=== PATIENT | female | born 1945 | race Two or more races ===

== ENCOUNTER 2024-12-05 10:31 | Inpatient (IN) | payer MEDICARE, MEDICAID ==
[~2024-12-05] VITALS: Ht 160 cm; Wt 61.2 kg
[2024-12-05] MEDS: SODIUM CHLORIDE 0.9% 500 ML IVB ONE (10:45)
--- NOTE | 2024-12-05 11:01 | ED.PDOC ---
Altered Mental Status HPI Comments 79y F who presents to the ED via EMS for chief complaint of ALOC. Per EMS, pt last well time was last night PM and states pt became distressed after pt got deported back to [place] last night. EMS arrived on scene this AM and states pt was tracking upon EMS arrival and became alterted upon being placed on EMS gurney. Pt had vitals checked and accu check was 156 but was hypotensive with systolic BP in the 70's and line was established and pt was given fluids with pt being alerted prior to ED arrival. Pt now in the ED, is altered with stable vitals but not answering questions at this time and is ax0x0. 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 Family History Family History: Pt Confused Social History Smoker: Pt Confused Alcohol: Pt Confused Drugs: Pt Confused Lives In: Pt Confused Constitutional: denies: chills, diaphoresis, fatigue, fever, malaise, sweats, weakness, others EENTM: denies: blurred vision, double vision, ear bleeding, ear discharge, ear drainage, ear pain, ear ringing, eye pain, eye redness, hearing loss, mouth pain, mouth swelling, nasal discharge, nose bleeding, nose congestion, nose pain, photophobia, tearing, throat pain, throat swelling, voice changes, others Respiratory: denies: cough, hemoptysis, orthopnea, SOB at rest, shortness of breath, SOB with excertion, stridor, wheezing, others Cardiovascular: denies: chest pain, dizzy spells, diaphoresis, Dyspnea on exertion, edema, irregular heart beat, left arm pain, lightheadedness, palpitations, PND, syncope, others Gastrointestinal: denies: abdomen distended, abdominal pain, blood streaked bowels, constipated, diarrhea, dysphagia, difficulty swallowing, hematemesis, melena, nausea, poor appetite, poor fluid intake, rectal bleeding, rectal pain, vomiting, others Genitourinary: denies: abnormal vagina bleeding, burning, dyspareunia, dysuria, flank pain, frequency, hematuria, incontinence, pain, , vagina discharge, urgency, others Neurological: denies: dizziness, fainting, headache, left sided numbness, left sided weakness, numbness, paresthesia, pre-existing deficit, right sided numbness, right sided weakness, seizure, speech problems, tingling, tremors, weakness, others Musculoskeletal: denies: back pain, gout, joint pain, joint swelling, muscle pain, muscle stiffness, neck pain, others Integumetry: denies: bruises, change in color, change in hair/nails, dryness, laceration, lesions, lumps, rash, wounds, others Allergic/Immunocompromised: denies: Difficulty Healing, Frequent Infections, Hives, Itching, others Hematologic/Lymphatic: denies: anemia, blood clots, easy bleeding, easy bruising, swollen glands, others Endocrine: denies: excessive hunger, excessive sweating, excessive thirst, excessive urination, flushing, intolerance to cold, intolerance to heat, unexplained weight gain, unexplained weight loss, others Psychiatric: denies: anxiety, bipolar disorder, depression, hopeless, panic disorder, schizophrenia, sleepless, suicidal, others Unable to Obtain due to: Altered Mental Status All Other Systems: Reviewed and Negative Physical Exam General Appearance: Moderate Distress HEENT: Pale Conjuntivae (L), Pale Conjuntivae (R), Pharynx Normal, TMs Normal Neck: Full Range of Motion, Non-Tender, Normal, Normal Inspection Respiratory: Chest Non-Tender, Lungs Clear, No Accessory Muscle Use, No Respiratory Distress, Normal Breath Sounds Cardiovascular: No Edema, No JVD, No Murmur, No Gallop, Normal Peripheral Pulses, Regular Rate/Rhythm Breast Exam: Deferred Gastrointestinal: No Organomegaly, Non Tender, No Pulsatile Mass, Normal Bowel Sounds, Soft Genitalia: Deferred Pelvic: Deferred Rectal: Deferred Extremities: No calf tenderness, Normal capillary refill, Normal inspection, Normal range of motion, Non-tender, No pedal edema Musculoskeletal : Apperance: Normal Neurologic: puncher and fastener II-XII nml as Tested, Motor Weakness, Normal Affect, No Sensory Deficits, Other (Altered level of consciousness) Cerebellar Function: Normal Reflexes: Normal Skin: Dry, Pallor, Warm Lymphatic: No Adenopathy EKG EKG : Pulse Rate (adult): 81 [place]: Normal Cardiac Rhythm: NSR Block: None Hypertrophy: None ST: Normal Was a procedure done? Was a procedure done?: No Differential Diagnosis (ALOC) Differential Diagnosis: Dehydration, Hypoglycemia, Encephalopathy, Sepsis, Closed Head Injury, Drug Overdose X-Ray, Labs, Meds, VS Vital Signs Date Time Temp Pulse Resp B/P (MAP) Pulse Ox O2 Delivery O2 Flow Rate FiO2 12/05/24 11:01 81 12/05/24 10:40 81 12/05/24 10:31 97.5 79 18 94/43 (60) 90 106/41 (62) Lab Test 12/05/24 13:24 12/05/24 12:00 12/05/24 11:20 Range/Units Lactic Acid Level Pending 3.5 *H 0.4-2.0 mmol/L Urine Color Light-yellow Yellow Urine Clarity Clear Clear Urine pH 5.0 5.0-9.0 Urine Specific [place] 1.008 1.001-1.035 Urine Protein Negative Negative Urine Ketones Negative Negative Urine Blood Trace H Negative /uL Urine Nitrite Negative Negative Urine Bilirubin Negative Negative Urine Urobilinogen Normal Negative mg/dL Urine Leukocyte Esterase Negative Negative /uL Urine RBC 1 0 - 4 /hpf Urine Microscopic WBC < 1 0-5 /HPF Urine Squamous Epithelial Cells Few <5 /hpf Urine Bacteria Few H None Seen /hpf Urine Glucose Normal Normal mg/dL White Blood Count 6.7 4.4-10.8 10^3/uL Red Blood Count 4.81 4.0-5.20 10^6/uL Hemoglobin 14.1 12.2-16.2 g/dL Hematocrit 42.9 36.0-46.0 % Mean Corpuscular Volume 89.1 80.0-100.0 fL Mean Corpuscular Hemoglobin 29.3 28.0-32.0 pg Mean Corpuscular Hemoglobin Concent 32.9 32.0-36.0 g/dL Red Cell Distribution Width 14.9 H 11.8-14.3 % Platelet Count 243 140-450 10^3/uL Mean Platelet Volume 7.9 6.9-10.8 fL Neutrophils (%) (Auto) 69.0 37.0-80.0 % Lymphocytes (%) (Auto) 22.5 10.0-50.0 % Monocytes (%) (Auto) 6.8 0.0-12.0 % Eosinophils (%) (Auto) 1.4 0.0-7.0 % Basophils (%) (Auto) 0.3 0.0-2.0 % Neutrophils # (Auto) 4.6 1.6-8.6 10 ^3/uL Lymphocytes # (Auto) 1.5 0.4-5.4 10 ^3/uL Monocytes # (Auto) 0.5 0-1.3 10 ^3/uL Eosinophils # (Auto) 0.1 0-0.8 10 ^3/uL Basophils # (Auto) 0 0-0.2 10 ^3/uL Nucleated Red Blood Cells 0.1 % Sodium Level 139 136-145 mmol/L Potassium Level 3.6 3.5-5.1 mmol/L Chloride Level 105 98-107 mmol/L Carbon Dioxide Level 22 20-31 mmol/L Anion Gap 12 5-15 Blood Urea Nitrogen 10 9-23 mg/dL Creatinine 0.74 0.550-1.02 mg/dL Glomerular Filtration Rate Calc 83 >90 mL/min BUN/Creatinine Ratio 13.5 10.0-20.0 Serum Glucose 126 H 74-106 mg/dL Calcium Level 9.0 8.7-10.4 mg/dL Total Bilirubin 0.7 0.2-1.0 mg/dL Aspartate Amino Transferase (AST) 223 H 13-40 U/L Alanine Aminotransferase (ALT) 72 H 7-40 U/L Alkaline Phosphatase 119 H 46-116 U/L Total Protein 6.7 5.7-8.2 g/dL Albumin 4.6 3.2-4.8 g/dL Current Medications Medications (Trade) Dose Ordered Sig/Joe Route Start Time Stop Time Status Last Admin Sodium Chloride 500 ml @ 500 mls/hr Q1H ONCE IVB 12/05/24 10:45 12/05/24 11:44 DC 12/05/24 10:45 Vancomycin HCl 250 ml @ 250 mls/hr ONCE ONCE IV 12/05/24 12:15 12/05/24 13:14 DC 12/05/24 13:23 Ceftriaxone Sodium 50 ml @ 100 mls/hr ONCE ONCE IV 12/05/24 12:15 12/05/24 12:44 DC 12/05/24 13:23 Sodium Chloride 1,000 ml @ 30 mls/hr Q24H ONCE IV 12/05/24 12:15 12/06/24 12:14 12/05/24 12:15 EXAM: CT HEAD WITHOUT CONTRAST IMPRESSION: 1. No acute intracranial process. CHEST RADIOGRAPH IMPRESSION: No acute cardiopulmonary disease. IV Hep-Lock was established Blood cultures x2 were drawn. After the cultures were drawn, the patient was given vancomycin and Rocephin IV piggyback The CBC is within normal limits The chemistry panel is within normal limits The urine test is negative for infection The 1st lactic acid level is 3.5 At this time, the patient was being admitted to the hospitalist. The patient was admitted Images Reviewed?: Images reviewed and evaluated by me Time of 1ST Reevaluation: 11:30 Reevaluation 1ST: Unchanged Patient Education/Counseling: Other (pt altered) Family Education/Counseling: No Family Present Additional Information - I reviewed the following notes from patient's past medical encounters: - The following tests were ordered, and results were reviewed by me: (Labs, X- Ray, EKG): cbc, cmp, lactic acid, ua, chest x-ray, ct heat w/o contrast, blood culture, ekg x1 - Additional information was gathered from interviewing the following independent Historian: (Family, Other Providers, EMT): ems - I reviewed and agreed with the following test results read by other provider: (X-ray, CT, US): radiologist - I discussed treatments and results with medical personnel and: (consultants, family): none Departure 1 Departure Time of Disposition: 13:40 Impression: Primary Impression: Metabolic encephalopathy Additional Impression: Sepsis Qualified Codes: A41.9 - Sepsis, unspecified organism Disposition: ADMITTED INPATIENT Admit to: Tele Condition: Fair Critical Care Note Critical Care Time?: Yes (45 min-critical care time only) Stability Stability form required: Yes Unstable for transfer: Telemetry monitoring (Telemetry monitoring required), ED Physician Assesment (Clinical assesment) Heart Score Heart Score: Heart Score Response (Comments) Value History N/A 0 EKG N/A 0 Age N/A 0 Risk Factors N/A 0 Troponin N/A 0 Total 0 I personally scribed for BEN IRIZARRY MD ([email or web address]) on 12/05/24 at 11:01. Electronically submitted by Sudarshan Balbuena ([email or web address]). I personally scribed for BEN IRIZARRY MD ([email or web address]) on 12/05/24 at 11:35. Electronically submitted by Sudarshan Balbuena ([email or web address]). BEN IRIZARRY MD Dec 05, 2024 11:01
--- NOTE | 2024-12-05 11:09 | DVH ---
EXAM: CT HEAD WITHOUT CONTRAST HISTORY: aloc COMPARISON: None TECHNIQUE: Axial images of the head were obtained and reformatted in coronal and sagittal planes. All CT scans at this medical facility are performed using dose modulation techniques as appropriate t o a performed exam including the following: Automated exposure control was utilized; adjustment of th e MA and/or KV according to patient size; and use of iterative reconstruction technique. CT Dose: CTDI volume is 50.87 mGy. Dose-length product is 900.9 mGy*cm FINDINGS: There is no evidence of acute intracranial hemorrhage, mass, mass effect midline shift. There is no h ydrocephalus or extra-axial fluid collection. Núñez-white matter differentiation is maintained. The visualized paranasal sinuses and mastoid air cells are clear. The calvarium is intact. IMPRESSION: 1. No acute intracranial process. HS:Y
--- NOTE | 2024-12-05 11:10 | DVH ---
CHEST RADIOGRAPH Indication: aloc Technique: Single frontal view of the chest was obtained Comparison: None FINDINGS: Lines and Tubes: None Lungs: No focal consolidation. Pleura: No effusion. No pneumothorax. Cardiomediastinal contours: Unremarkable Bones: No acute osseous abnormality. IMPRESSION: No acute cardiopulmonary disease.
[2024-12-05 11:34] LABS: Basophils # (auto) 0 10 ^3/uL (0-0.2); Basophils % (auto) 0.3 % (0.0-2.0); Eosinophils # (auto) 0.1 10 ^3/uL (0-0.8); Eosinophils % (auto) 1.4 % (0.0-7.0); Hematocrit 42.9 % (36.0-46.0); Hemoglobin 14.1 g/dL (12.2-16.2); Lymphocytes # (auto) 1.5 10 ^3/uL (0.4-5.4); Lymphocytes % (auto) 22.5 % (10.0-50.0); Mean Corpuscular Hemoglobin 29.3 pg (28.0-32.0); Mean Corpuscular Hgb Conc. 32.9 g/dL (32.0-36.0); Mean Corpuscular Volume 89.1 fL (80.0-100.0); Monocytes # (auto) 0.5 10 ^3/uL (0-1.3); Monocytes % (auto) 6.8 % (0.0-12.0); Neutrophils # (auto) 4.6 10 ^3/uL (1.6-8.6); Nucleated Red Blood Cells % 0.1 %; Platelet Count (auto) 243 10^3/uL (140-450); Red Blood Cells 4.81 10^6/uL (4.0-5.20); Red Cell Distribution Width 14.9 % (11.8-14.3); White Blood Cell 6.7 10^3/uL (4.4-10.8)
[2024-12-05 11:52] LABS: Albumin 4.6 g/dL (3.2-4.8); Anion Gap 12 (5-15); BUN/Creatinine Ratio 13.5 (10.0-20.0); Bilirubin, Total 0.7 mg/dL (0.2-1.0); Blood Urea Nitrogen 10 mg/dL (9-23); Carbon Dioxide 22 mmol/L (20-31); Chloride 105 mmol/L (98-107); Potassium 3.6 mmol/L (3.5-5.1); Sodium 139 mmol/L (136-145); Total Protein 6.7 g/dL (5.7-8.2)
[2024-12-05 11:53] LABS: Alanine Aminotransferase 72 U/L (7-40); Alkaline Phosphatase 119 U/L (46-116); Aspartate Aminotransferase 223 U/L (13-40); Glucose 126 mg/dL (74-106)
[2024-12-05 12:10] LABS: Lactic Acid w/Reflex 3.5 mmol/L (0.4-2.0)
[2024-12-05] MEDS: SODIUM CHLORIDE 0.9% 1,000 ML IV ONE (12:15)
[2024-12-05 12:26] LABS: Urine Bacteria FEW /hpf (None Seen); Urine Blood TRACE /uL (Negative); Urine Clarity Clear (Clear); Urine Color Light-Yellow (Yellow); Urine Protein, UAD Negative (Negative); Urine Specific Gravity 1.008 (1.001-1.035); Urine Squamous Epithelial Cell FEW /hpf (<5); Urine Urobilinogen Normal (Negative); Urine WBC < 1 /HPF (0-5)
[2024-12-05] MEDS: cefTRIAXone 1GM/50ML D5W 50 ML IV ONE (13:23)
[2024-12-05] MEDS: VANCOMYCIN 1GM/250ML KIT 250 ML IV ONE (13:23)
[2024-12-05] MEDS ORDERED: MORPHINE SULFATE INJ 2 MG/ml SYRG IV PRN (17:15)
[2024-12-05] MEDS ORDERED: NITROGLYCERIN 0.4 MG SL TAB SL PRN (17:15)
[2024-12-05] MEDS ORDERED: CLOP75TA70 PO (17:16)
[2024-12-05] MEDS ORDERED: ATOR40TA52 PO (17:16)
--- NOTE | 2024-12-05 17:23 | DVHHP2 ---
History of Present Illness Reason for Visit: Altered mental status History of Present Illness The patient was a 79-year-old female transported to the emergency room by EMS after being found to be nonresponsive at home. Apparently, the patient was last seen yesterday evening watching TV, and when she was checked this morning she was somewhat nonresponsive. At the time of assessment, the patient was alert and oriented, but was reported by the primary nurse in the emergency room that she did have a period of becoming nonresponsive. At this time all vital signs are stable, with home medications reviewed. Significant history of the patient includes hypertension, dyslipidemia, GERD, and neuropathy. Cardiovascular: HTN, hyperipidemia Past Medical History Neuropathy Past Surgical History: None Smoke: No Lives: with Family Review of Systems Constitutional: Yes: Weakness Eyes: No: Pain, Vision change, Conjunctivae inflammation, Eyelid inflammation, Other, Redness ENT: No: Ear pain, Ear discharge, Nose pain, Nose discharge, Nose congestion, Mouth pain, Mouth swelling, Throat pain, Throat swelling, Other Respiratory: No: Cough, Dry, Shortness of breath, SOB with excertion, Wheezing, Hemoptysis, Pleuritic Pain, Sputum, Wheezing, Other Cardiovascular: No: Chest Pain, Palpitations, Orthopnea, Paroxysmal Noc. Dyspnea, Edema, Lt Headedness, Other Gastrointestinal: No: Nausea, Vomiting, Abdominal Pain, Diarrhea, Constipation, Melena, Hematochezia, Other Genitourinary: No Dysuria, No Frequency, No Incontinence, No Hematuria, No Retention, No Other Musculoskeletal: No: other, neck pain, shoulder pain, arm pain, back pain, hand pain, leg pain, foot pain Skin: No: Rash, Lesions, Jaundice, Bruising, Other Neurological: Other (Altered mental status) Allergies: Coded Allergies: UNOBTAINABLE (Unverified , 12/05/24) Medications Current Medications Medications Dose Ordered Sig/Joe Route Start Time Stop Time Status Last Admin Dose Admin Nitroglycerin 0.4 mg Q5MINP PRN SL 12/05/24 17:15 UNV Morphine Sulfate 2 mg Q30M PRN IV 12/05/24 17:15 UNV Sodium Chloride 1,000 ml @ 75 mls/hr [id number] IV 12/05/24 17:15 UNV Exam Vital Signs Vital Signs Date Time Temp Pulse Resp B/P (MAP) Pulse Ox O2 Delivery O2 Flow Rate FiO2 12/05/24 16:00 83 12/05/24 14:40 11 108/73 (85) 99 12/05/24 14:00 98.0 98.0 12/05/24 11:20 Nasal Cannula* 2 28 General Appearance: Alert, Oriented X3, Cooperative, No acute distress HEENT: Atraumatic, PERRLA Respiratory: Clear to auscultation, Normal air movement Cardiovascular: Normal S1, Normal S2 Abdominal: Normal bowel sounds Neuro: Normal gait, Normal speech Psych/Mental Status: Mental status NL, Mood NL Labs/Xrays Labs Test 12/05/24 13:24 12/05/24 12:00 12/05/24 11:20 Range/Units Lactic Acid Level 3.4 *H 0.4-2.0 mmol/L Urine Color Light-yellow Yellow Urine Clarity Clear Clear Urine pH 5.0 5.0-9.0 Urine Specific [place] 1.008 1.001-1.035 Urine Protein Negative Negative Urine Ketones Negative Negative Urine Blood Trace H Negative /uL Urine Nitrite Negative Negative Urine Bilirubin Negative Negative Urine Urobilinogen Normal Negative mg/dL Urine Leukocyte Esterase Negative Negative /uL Urine RBC 1 0 - 4 /hpf Urine Microscopic WBC < 1 0-5 /HPF Urine Squamous Epithelial Cells Few <5 /hpf Urine Bacteria Few H None Seen /hpf Urine Glucose Normal Normal mg/dL White Blood Count 6.7 4.4-10.8 10^3/uL Red Blood Count 4.81 4.0-5.20 10^6/uL Hemoglobin 14.1 12.2-16.2 g/dL Hematocrit 42.9 36.0-46.0 % Mean Corpuscular Volume 89.1 80.0-100.0 fL Mean Corpuscular Hemoglobin 29.3 28.0-32.0 pg Mean Corpuscular Hemoglobin Concent 32.9 32.0-36.0 g/dL Red Cell Distribution Width 14.9 H 11.8-14.3 % Platelet Count 243 140-450 10^3/uL Mean Platelet Volume 7.9 6.9-10.8 fL Neutrophils (%) (Auto) 69.0 37.0-80.0 % Lymphocytes (%) (Auto) 22.5 10.0-50.0 % Monocytes (%) (Auto) 6.8 0.0-12.0 % Eosinophils (%) (Auto) 1.4 0.0-7.0 % Basophils (%) (Auto) 0.3 0.0-2.0 % Neutrophils # (Auto) 4.6 1.6-8.6 10 ^3/uL Lymphocytes # (Auto) 1.5 0.4-5.4 10 ^3/uL Monocytes # (Auto) 0.5 0-1.3 10 ^3/uL Eosinophils # (Auto) 0.1 0-0.8 10 ^3/uL Basophils # (Auto) 0 0-0.2 10 ^3/uL Nucleated Red Blood Cells 0.1 % Sodium Level 139 136-145 mmol/L Potassium Level 3.6 3.5-5.1 mmol/L Chloride Level 105 98-107 mmol/L Carbon Dioxide Level 22 20-31 mmol/L Anion Gap 12 5-15 Blood Urea Nitrogen 10 9-23 mg/dL Creatinine 0.74 0.550-1.02 mg/dL Glomerular Filtration Rate Calc 83 >90 mL/min BUN/Creatinine Ratio 13.5 10.0-20.0 Serum Glucose 126 H 74-106 mg/dL Calcium Level 9.0 8.7-10.4 mg/dL Total Bilirubin 0.7 0.2-1.0 mg/dL Aspartate Amino Transferase (AST) 223 H 13-40 U/L Alanine Aminotransferase (ALT) 72 H 7-40 U/L Alkaline Phosphatase 119 H 46-116 U/L Total Protein 6.7 5.7-8.2 g/dL Albumin 4.6 3.2-4.8 g/dL Assessment/Plan Assessment/Plan Impression: -metabolic encephalopathy -rule out CVA/TIA -rule out seizure disorder -probable syncope -dyslipidemia -primary hypertension Plan: -admit to telemetry unit -carotid Doppler study -echocardiogram -IV hydration -blood and urine culture -hold antihypertensives given marginal blood pressure -repeat labs in a.m. Total time spent with patient discussing and formulating plan of care: 35 minutes. This medical document was created using an electronic medical record system with [employer] system. Although this document has been carefully reviewed, there may still be some phonetic and typographical errors. These areas are purely typographical due to imperfections of the software programs, and do not reflect any compromise in the patient's medical care. Plan discussed with: Patient, Other (RN) My Orders Orders - CARLOS COLON NP Procedure Category Date Status Time Admit ADMIT 12/05/24 Transmitted 17:14 Nitroglycerin PHA 12/05/24 Logged Sublingual (Ntrostat 17:15 Morphine Sulfate PHA 12/05/24 Logged Injection 17:15 Stat Ekg For Chest [facility] 12/05/24 In Process Pain 17:14 Notify Of Changes ALESSANDRA 12/05/24 In Process From Base 17:14 Construction Site Manager For ALESSANDRA 12/05/24 In Process 24 Hours 17:14 Emergency Dysrhythmia [facility] 12/05/24 In Process Protocol 17:14 Rhythm Strips Once ALESSANDRA 12/05/24 In Process Every Shift 17:14 Oxygen By Nasal RT 12/05/24 Transmitted Cannula 17:14 Urine Bacterial JEANETH 12/05/24 Logged Culture 17:14 Erythrocyte LAB 12/05/24 Logged Sedimentation Rate 17:14 C-Reactive Protein LAB 12/05/24 Logged 17:14 Sodium Chloride 0.9% PHA 12/05/24 Logged 17:15 Cardiac DIET 12/05/24 Verified Diet-2gna,Lofat,Lochol Dinner Echo 2d Mode Cardiac US 12/05/24 Verified DOP 17:16 Carotid Duplx W Color US 12/05/24 Verified DOP 17:16 Orthostatic Vital ORDERS 12/05/24 Verified Signs 17:16 Basic Metabolic Panel LAB 12/06/24 Verified 04:00 Complete Blood Count LAB 12/06/24 Verified 04:00 Date of Service: Dec 05, 2024 Billing Provider: CARLOS COLON NP Common Visit Codes: 44201-OJYCAMM INP/OBS CARE (HIGH) CARLOS COLON NP Dec 05, 2024 17:23
--- NOTE | 2024-12-05 19:05 | ECG ---
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
[2024-12-05 20:02] LABS: Erythrocyte Sedimentation Rate 2 mm/hr (0-20)
--- NOTE | 2024-12-05 20:25 | DVH ---
Carotid Duplex Clinical History: syncope Comparison: None Technique: Duplex doppler evaluation of the extracranial carotid and vertebral arteries including color doppler and spectral/pulsed waveform analysis was performed. Findings: RIGHT SIDE: No significant atherosclerotic plaque noted. The peak systolic velocities are 68 cm/s in the CCA, 185 cm/s in the ICA. The ICA/CCA ratio is 2.7. The external carotid artery is patent with peak systolic velocity of 129 cm/s proximally. There is appropriate antegrade flow in the right vertebral artery. LEFT SIDE: No significant atherosclerotic plaque noted. The peak systolic velocities are 89 cm/s in the CCA, 115 cm/s in the ICA. The ICA/CCA ratio is 1.3. The external carotid artery is patent with peak systolic velocity of 105 cm/s proximally. There is appropriate antegrade flow in the left vertebral artery. IMPRESSION: No significant plaque noted in either carotid artery. The velocity in the right ICA is mildly elevate d though this is felt to be artifactual in nature - due to vessel tortuosity. Reference: Radiology 2003; 229:340-346 Normal ICA PSV is <125 cm/sec and no plaque or intimal thickening is visible sonographically Additional criteria include ICA/CCA PSV ratio <2.0 and ICA EDV <40 cm/sec <50% ICA stenosis ICA PSV is <125 cm/sec and plaque or intimal thickening is visible sonographically Additional criteria include ICA/CCA PSV ratio <2.0 and ICA EDV <40 cm/sec 50-69% ICA stenosis ICA PSV is 125-230 cm/sec and plaque is visible sonographically Additional criteria include ICA/CCA PSV ratio of 2.0-4.0 and ICA EDV of 40-100 cm/sec 70% ICA stenosis but less than near occlusion ICA PSV is >230 cm/sec at visible plaque at luminal narrowing are seen at nova-scale at color doppler ultrasound (the higher the doppler parameters lie above the threshold of 230 cm/sec, the greater the likelihood of severe disease) Additional criteria include ICA/CCA PSV ratio >4 and ICA EDV >100 cm/sec
[2024-12-05] MEDS: SODIUM CHLORIDE 0.9% 1,000 ML IV SCH (20:53)
[2024-12-05] MEDS: ACETAMINOPHEN 500 MG TAB or CAP PO PRN (22:35)
[2024-12-06 05:00] VITALS: BP 151/89; PULSE 97; RESP 18; TEMP 98.3; O2SAT 97
[2024-12-06 06:35] LABS: Basophils # (auto) 0 10 ^3/uL (0-0.2); Basophils % (auto) 0.4 % (0.0-2.0); Eosinophils # (auto) 0.1 10 ^3/uL (0-0.8); Eosinophils % (auto) 1.1 % (0.0-7.0); Hematocrit 40.8 % (36.0-46.0); Hemoglobin 13.7 g/dL (12.2-16.2); Lymphocytes # (auto) 1.7 10 ^3/uL (0.4-5.4); Lymphocytes % (auto) 22.9 % (10.0-50.0); Mean Corpuscular Hemoglobin 29.8 pg (28.0-32.0); Mean Corpuscular Hgb Conc. 33.7 g/dL (32.0-36.0); Mean Corpuscular Volume 88.5 fL (80.0-100.0); Monocytes # (auto) 0.4 10 ^3/uL (0-1.3); Monocytes % (auto) 5.4 % (0.0-12.0); Neutrophils # (auto) 5.2 10 ^3/uL (1.6-8.6); Neutrophils % (auto) 70.2 % (37.0-80.0); Nucleated Red Blood Cells % 0.1 %; Platelet Count (auto) 270 10^3/uL (140-450); Red Cell Distribution Width 15.1 % (11.8-14.3); White Blood Cell 7.4 10^3/uL (4.4-10.8)
[2024-12-06 06:36] LABS: Sodium 144 mmol/L (136-145)
[2024-12-06 06:37] LABS: Anion Gap 13 (5-15); Carbon Dioxide 21 mmol/L (20-31)
[2024-12-06 06:38] LABS: Calcium 8.9 mg/dL (8.7-10.4)
[2024-12-06 06:43] LABS: Chloride 110 mmol/L (98-107); Glucose 110 mg/dL (74-106)
[2024-12-06 06:54] LABS: BUN/Creatinine Ratio 10.8 (10.0-20.0); Blood Urea Nitrogen 7 mg/dL (9-23)
[2024-12-06 08:00] VITALS: PULSE 93; RESP 26; O2SAT 95
--- NOTE | 2024-12-06 09:36 | DVHPN2 ---
Progress Note - Dictate Date Seen: Dec 06, 2024 Medical Necessity Reason Pt with a Central, PICC or Fol: No vital signs Vital Sign Date Time Temp Pulse Resp B/P (MAP) Pulse Ox O2 Delivery O2 Flow Rate FiO2 12/06/24 08:00 92 12/06/24 08:00 26 95 Room Air* 0 21 12/06/24 08:00 98.8 163/63 (96) 98.8 Total Intake and Output 12/05/24 12/05/24 12/06/24 15:00 23:00 07:00 Intake Total 1800 ml 150 ml 850 ml Output Total 200 ml 2500 ml Balance 1600 ml -2350 ml 850 ml medications Current Medications Medications Dose Ordered Sig/Joe Route Start Time Stop Time Status Last Admin Dose Admin Nitroglycerin 0.4 mg Q5MINP PRN SL 12/05/24 17:15 Morphine Sulfate 2 mg Q30M PRN IV 12/05/24 17:15 Sodium Chloride 1,000 ml @ 75 mls/hr [id number] IV 12/05/24 17:15 12/06/24 07:00 75 MLS/HR Acetaminophen 500 mg Q6HP PRN PO 12/05/24 22:15 12/06/24 04:04 500 MG laboratory and microbiology Laboratory Tests 12/06/24 05:52 Test 12/06/24 05:52 Range/Units Serum Glucose 110 H 74-106 mg/dL Assessment/Plan Subjective Patient is awake and alert. Objective Patient's mentation has improved. Patient is [place]-speaking. Patient was admitted for syncopal episode. Patient has elevated liver enzymes and lactic acidosis. Plan Obtain CT imaging of abdomen and pelvis. Monitor daily labs. Cardiology consult. DC planning in 1 to 2 days. Plan discussed with: Patient, Other SHAINA COLEMAN NP Dec 06, 2024 09:36
[2024-12-06] MEDS ORDERED: LOSA-534 PO (09:41)
[2024-12-06] MEDS ORDERED: IOHEXOL 300 MG/ML 100ML BOTTLE IJ ONE (10:16)
[2024-12-06 10:39] LABS: LDL Cholesterol 91 mg/dL (< 100); Triglycerides 120 mg/dL (< 150)
[2024-12-06 10:41] LABS: Cholesterol 157 mg/dL (< 200); HDL Cholesterol 54 mg/dL (40-59)
[2024-12-06] MEDS: CLOPIDOGREL BISULFATE 75 MG TAB PO SCH (11:00)
[2024-12-06] MEDS: LOSARTAN POTASSIUM 50 MG TAB PO SCH (11:01)
[2024-12-06] MEDS: PANTOPRAZOLE 40 MG/10 ML VIAL INJ IV SCH (11:02)
[2024-12-06] MEDS: ENOXAPARIN SOD 40 MG/0.4 ML SYRINGE SC SCH (11:02)
[2024-12-06 13:00] VITALS: BP 153/73; PULSE 100; RESP 18; TEMP 97.6; O2SAT 95
[2024-12-06 15:21] VITALS: BP 185/84; PULSE 94; RESP 19; TEMP 98.3; O2SAT 94
[2024-12-06] MEDS: hydrALAZINE HCL 20 MG/ML VL IV PRN (16:29)
--- NOTE | 2024-12-06 17:34 | DVH ---
Exam: CT CT AB PEL WITH IV CON ONLY History: ELEVATED LIVER ENZYMES COMPARISON: None Technique: Multidetector spiral CT of the abdomen and pelvis was performed from lung bases to pubic s ymphysis. Intravenous contrast was administered during this examination. Portal venous imaging was obtained. Axial, coronal and sagittal multiplanar reformats were performed by the technologist on a separate workstation. Radiation Dose : 1. Abdomen/Pelvis: CTDIvol 13 mGy, DLP 563.56 mGy*cm. CONTRAST: Type of contrast: Omnipaque 300 Contrast injected: 100 ml Contrast ingested: 0 ml Findings: Lung Bases: No acute or significant lung base finding. Normal heart size. No pleural or pericardial effusion. Liver: The liver is normal in size. No focal lesions. Normal hepatic vascular enhancement. Gallbladder and biliary Tree: Cholecystectomy. Normal tapering of the common bile duct Spleen: Unremarkable Pancreas: The pancreas is normal in appearance without focal lesions or abnormal enhancement. Adrenal Glands: Unremarkable Kidneys: No hydronephrosis. Bladder: Unremarkable Bowel: The stomach is grossly normal in appearance. Small bowel and colon are normal in caliber and d istribution. The appendix is not visualized; however, no secondary findings of acute appendicitis id entified. Ascites: Absent Lymphadenopathy: No mesenteric, retroperitoneal or periportal lymphadenopathy. Abdominal wall and Mesentery: Unremarkable. Vasculature: The visualized abdominal aorta is normal in size and caliber. Abdominal and pelvic vesse ls demonstrate normal enhancement. Vascular calcification without aneurysm noted Moderate and degree. Pelvic Organs: Severe enlargement of the uterus. Marked inhomogeneity the uterus. Scattered calcifica tion seen throughout the uterus. Pelvic ultrasound recommended to exclude neoplasm. Marked compressio n of the bladder. Multiple small calcifications to the right of the uterus which may be of ovarian et iology. Musculoskeletal: No aggressive focal bony lesions, acute fractures or dislocation. Postoperative navarrete ges seen in the lumbar spine. Grade 2 anterolisthesis of L5 on S1. Laminectomy at the L45 and L5-S1 l evels. IMPRESSION: 1. Severe enlargement of the uterus which is of mixed attenuation. Pelvic ultrasound recommended to e xclude tumor. 2. Appendix not visualized 3. No obstructive uropathy 4. No aortic aneurysm Radiation optimization: All CT scans at this facility use at least one of these dose optimization lalo hniques: Automated exposure control mA and/or kV adjustment per patient size (includes targeted exams where dose is matched to clinical indication) or iterative reconstruction.
--- NOTE | 2024-12-06 18:21 | DVHSR ---
APPROVED REPORT EXAM: Two-dimensional and M-mode echocardiogram with Doppler and color Doppler. Blood Pressure: 164/69 mmHg INDICATION Syncope RISK FACTORS Height: 5'3, Weight: 150 DIMENSIONS LVDd3.7 (3.8-5.7cm)LA (2D) (1.9-4.0cm)Aortic Root3.2 (2.0-3.7cm) LVDs2.6 (2.5-4.0cm)LA (MM) (1.9-4.0cm)Aortic Cusp Exc1.4 (1.5-2.0cm) EF (%) 55.0 (55-70%)Rt. Atrium (1.9-4.0cm)Asc. Aorta3.4 cm IVSd1.1 (0.7-1.1cm)RV (D) (1.8-2.4cm) PWd0.7 (0.7-1.1cm) Mitral Valve MitralMitral Stenosis E wave0.72m/sMV Mean GR.mmHg A wave1.23m/sMV Peak GR.mmHg E/A ratio0.62D MVAcm2 DECEL [id number] 1/2 Tim[place] Aortic Valve Aortic ValveAortic Stenosis V11.48m/John Mean GR.5mmHg V21.47m/John Peak GR.9mmHg LVOT Diameter1.7 (1.8-2.4cm)Doppler AVA2.28cm2 Pulmonic Valve V21.14m/s Other Information Quality : Technically LimitedRhythm : Technically limited study due to patient position.body habitus. Conclusion Left ventricle: Left ventricle was normal size with normal systolic function. LVEF was around 55%. There was no gross wall motion abnormality. Right ventricle: Right ventricle is normal size with normal systolic function. Both atria were yajaira l size. Aortic valve was trileaflet. There was no aortic insufficiency/stenosis. There was no mitral/tricus pid regurgitation. Pulmonary valve was not well visualized. As there was no good tricuspid regurgitation jet, right ventricular systolic pressure could not be es timated. There was no pericardial effusion. IVC was normal size with normal respiratory variation.
--- NOTE | 2024-12-06 19:29 | DVH ---
ABDOMINAL ULTRASOUND CLINICAL HISTORY: elevated liver enzymes TECHNIQUE: Multiple grayscale and color Doppler ultrasound images were obtained of the abdomen. WID: COMPARISON: None FINDINGS: Liver and Biliary System: Homogeneous echotexture, normal size measuring 10.75 cm. No focal hepati c observations. No intrahepatic bile duct dilatation. The common duct measures 0.3 cm at the leobardo hepatis. Prior cholecystectomy. Pancreas: Visualized portions are unremarkable. Kidneys: The right kidney is 8.9 cm . No hydronephrosis, increased echogenicity, shadowing stone, o r focal lesion. IMPRESSION: 1. No acute abnormality 2. Prior cholecystectomy.
--- NOTE | 2024-12-06 19:38 | DVHINCON2 ---
Date of service: Dec 06, 2024 History of Present Illness HPI Patient is a 79-year-old female who presented to the hospital secondary to altered mental status. As per EMS, the patient's blood pressure was 70s at home. She did get some fluids and felt better later on. Patient denies any chest pains. Patient denies palpitation. Cardiology is involved for cardiac aspects of care. Patient denies previous cardiac evaluation and management. Patient denies history of drug abuse/alcohol abuse. It seems that the patient did receive some stressful news prior to the problem. She is [place] speaking and information was obtained by using an professor of sociology and talking to the patient's son at the bedside. Home Meds Reported Medications Losartan Potassium (Losartan Potassium) 50 Mg Tab, 1 TAB PO DAILY 12/06/24 Atorvastatin Calcium (ATORVASTATIN CALCIUM) 40 Mg Tab, 1 TAB PO DAILY 12/05/24 Clopidogrel Bisulfate (CLOPIDOGREL) 75 Mg Tab, 1 TAB PO DAILY 12/05/24 Past Medical History Others Past medical history includes hypertension, hyperlipidemia, neuropathy and old history of GERD. She has had back surgery few years back. He has no report of drug abuse/smoking/alcohol abuse. There is no relevant family history. Patient Family History: Patient reports no known family medical history. Smoker: No Hx (Negative) Alocohol: Rare Drugs: None Review of Systems Constitutional: Weakness Ears, Nose, & Throat: No symptom reported Eyes: Vision change Pulmonary/Respiratory: No symptom reported Cardiovascular: No symptom reported All Other Systems Fourteen point review of system was performed. Relevant findings as per above and as per HPI. Otherwise negative H&P Exam Vital Signs Vital Signs Date Time Temp Pulse Resp B/P (MAP) Pulse Ox O2 Delivery O2 Flow Rate FiO2 12/06/24 16:29 162/84 12/06/24 15:21 98.3 94 19 94 98.3 12/06/24 08:00 Room Air* 0 21 General Appeara: Well developed Head Exam: Normal inspection Eye Exam: bilateral eye PERRL Nasal Exam: Normal inspection Mouth: Normal Inspection Pulmonary/Respiratory: Lungs clear Cardiovascular/Chest: Normal inspection, Normal Rhythm, Systolic murmur Peripheral Pulses: 2+ carotid (R), 2+ carotid (L), 2+ femoral (R), 2+ femoral (L), 2+ dorsalis pedis (R), 2+ dorsalis pedis (L), 2+ Radial (R), 2+ Radial (L) Abdominal Exam: Normal bowel sounds, Soft, No hepatospenomegaly Neuro/Mental St: Alert, Oriented Eye contact/ Speech: Cooperative Labs/Xrays Labs Test 12/06/24 05:52 12/05/24 18:25 12/05/24 13:24 12/05/24 12:00 Range/Units White Blood Count 7.4 4.4-10.8 10^3/uL Red Blood Count 4.60 4.0-5.20 10^6/uL Hemoglobin 13.7 12.2-16.2 g/dL Hematocrit 40.8 36.0-46.0 % Mean Corpuscular Volume 88.5 80.0-100.0 fL Mean Corpuscular Hemoglobin 29.8 28.0-32.0 pg Mean Corpuscular Hemoglobin Concent 33.7 32.0-36.0 g/dL Red Cell Distribution Width 15.1 H 11.8-14.3 % Platelet Count 270 140-450 10^3/uL Mean Platelet Volume 8.1 6.9-10.8 fL Neutrophils (%) (Auto) 70.2 37.0-80.0 % Lymphocytes (%) (Auto) 22.9 10.0-50.0 % Monocytes (%) (Auto) 5.4 0.0-12.0 % Eosinophils (%) (Auto) 1.1 0.0-7.0 % Basophils (%) (Auto) 0.4 0.0-2.0 % Neutrophils # (Auto) 5.2 1.6-8.6 10 ^3/uL Lymphocytes # (Auto) 1.7 0.4-5.4 10 ^3/uL Monocytes # (Auto) 0.4 0-1.3 10 ^3/uL Eosinophils # (Auto) 0.1 0-0.8 10 ^3/uL Basophils # (Auto) 0 0-0.2 10 ^3/uL Nucleated Red Blood Cells 0.1 % Sodium Level 144 # 136-145 mmol/L Potassium Level 4.0 3.5-5.1 mmol/L Chloride Level 110 H 98-107 mmol/L Carbon Dioxide Level 21 20-31 mmol/L Anion Gap 13 5-15 Blood Urea Nitrogen 7 L 9-23 mg/dL Creatinine 0.65 0.550-1.02 mg/dL Glomerular Filtration Rate Calc 90 >90 mL/min BUN/Creatinine Ratio 10.8 10.0-20.0 Serum Glucose 110 H 74-106 mg/dL Calcium Level 8.9 8.7-10.4 mg/dL B-Type Natriuretic Peptide 105.93 0-100 pg/mL Triglycerides Level 120 < 150 mg/dL Cholesterol Level 157 < 200 mg/dL LDL Cholesterol 91 < 100 mg/dL HDL Cholesterol 54 40-59 mg/dL Vitamin D 25-Hydroxy 86.9 30.0-100 ng/mL Erythrocyte Sedimentation Rate 2 0-20 mm/hr C-Reactive Protein High Sensitivity 0.07 <1.0 mg/dL Lactic Acid Level 3.4 *H 0.4-2.0 mmol/L Urine Color Light-yellow Yellow Urine Clarity Clear Clear Urine pH 5.0 5.0-9.0 Urine Specific [place] 1.008 1.001-1.035 Urine Protein Negative Negative Urine Ketones Negative Negative Urine Blood Trace H Negative /uL Urine Nitrite Negative Negative Urine Bilirubin Negative Negative Urine Urobilinogen Normal Negative mg/dL Urine Leukocyte Esterase Negative Negative /uL Urine RBC 1 0 - 4 /hpf Urine Microscopic WBC < 1 0-5 /HPF Urine Squamous Epithelial Cells Few <5 /hpf Urine Bacteria Few H None Seen /hpf Urine Glucose Normal Normal mg/dL Test 12/05/24 11:20 Range/Units Total Bilirubin 0.7 0.2-1.0 mg/dL Aspartate Amino Transferase (AST) 223 H 13-40 U/L Alanine Aminotransferase (ALT) 72 H 7-40 U/L Alkaline Phosphatase 119 H 46-116 U/L Total Protein 6.7 5.7-8.2 g/dL Albumin 4.6 3.2-4.8 g/dL Microbiology Date/Time Source Procedure Growth Status 12/05/24 12:00 Urine - [place] Urine Culture - Preliminary Resulted 12/05/24 11:20 Blood Blood Culture - Preliminary NO GROWTH AFTER 24 HOURS OF INCUBATION. Resulted Assessment/Plan Plan Patient is a 79-year-old female who presented to the hospital secondary to altered mental status. As per EMS, the patient's blood pressure was 70s at home. She did get some fluids and felt better later on. Patient denies any chest pains. Patient denies palpitation. Cardiology is involved for cardiac aspects of care. Patient denies previous cardiac evaluation and management. Patient denies history of drug abuse/alcohol abuse. It seems that the patient did receive some stressful news prior to the problem. She is [place] speaking and information was obtained by using an professor of sociology and talking to the patient's son at the bedside. Not in acute distress. Sitting in bed and eating dinner at the time of evaluation. Not using accessory muscles of breathing. Mucosa is pink and wet. No carotid bruit. No goiter. Lungs are clear to auscultation. Cardiac: Regular, no thrill/gallop. Abdomen is soft. Bowel sounds is positive. There is no gross mass/hepatomegaly. There is no peripheral edema. Past medical history includes hypertension, hyperlipidemia, neuropathy and old history of GERD. She has had back surgery few years back. He has no report of drug abuse/smoking/alcohol abuse. There is no relevant family history. Creatinine: 0.74 - 0.65 Potassium: 3.6 - 4.0 AST/ALT: 223/72 Lactic acid: 3.5 - 3.4 BNP: 105.93 Chest x-ray revealed: No acute cardiopulmonary disease. CT of the head revealed: IMPRESSION: 1. No acute intracranial process. Carotid Doppler reported: IMPRESSION: No significant plaque noted in either carotid artery. The velocity in the right ICA is mildly elevated though this is felt to be artifactual in nature - due to vessel tortuosity. Abdomen/pelvis CT scan reported: IMPRESSION: 1. Severe enlargement of the uterus which is of mixed attenuation. Pelvic ultrasound recommended to exclude tumor. 2. Appendix not visualized 3. No obstructive uropathy 4. No aortic aneurysm EKG revealed sinus rhythm with no specific ST-T changes Telemetry reveals sinus rhythm and occasions of sinus tachycardia Echocardiogram revealed: Left ventricle: Left ventricle was normal size with normal systolic function. LVEF was around 55%. There was no gross wall motion abnormality. Right ventricle: Right ventricle is normal size with normal systolic function. Both atria were normal size. Aortic valve was trileaflet. There was no aortic insufficiency/stenosis. There was no mitral/tricuspid regurgitation. Pulmonary valve was not well visualized. As there was no good tricuspid regurgitation jet, right ventricular systolic pressure could not be estimated. There was no pericardial effusion. IVC was normal size with normal respiratory variation. Patient is a 79-year-old female who presented to the hospital with altered mental status which slowly improved. Presentation is in favor of some type of encephalopathy (most likely metabolic). Cardiogenic syncope and presentation is less likely. Altered mental status Encephalopathy, metabolic/toxic/septic? Hypotension UTI? Hyperlipidemia Neuropathy GERD Hypertension Uterus enlargement Cardiac suggestion for management: Manage on telemetry Follow-up electrolytes and kidney function tests and correct abnormalities Consider GI evaluation for abnormal LFT Consider physician's assistant evaluation/abdominal sono for uterus enlargement Further evaluation and management depends on the above and clinical course Thank you for consultation A total of 75 minutes was spent reviewing the patient record, examining the patient, making a diagnostic and therapeutic plan, discussing this plan with medical personnel, following up on diagnostic studies and following the patient for clinical stability excluding any and all procedures. At least 50% of this time was spent in direct, [id number] contact. Thank you for allowing me to participate in this patient's care. Further recommendations will depend on patient's clinical course. Please do not hesitate to contact me if you have any questions or concerns. This medical document was created using electronic medical record system with [employer] computerized dictation system. Although this document has been carefully reviewed, there may still be some phonetic and typographical errors. These areas are purely typographical due to the imperfection of the software programs, and do not reflect any compromise in the patient's medical care. Plan discussed with: Patient, Son (at bedside), Other (nurse) MARTITA SYKES MD Dec 06, 2024 19:38
[2024-12-06 20:00] VITALS: PULSE 103
[2024-12-06 21:00] VITALS: BP 155/72; PULSE 102; RESP 18; TEMP 98.4; O2SAT 94
--- NOTE | 2024-12-06 21:36 | DVHINCON2 ---
Date of service: Dec 06, 2024 Referring Physician Nanci Reason for Consultation Syncope, ALOC History of Present Illness Ms. Connelly was right-handed female with a history of hypertension, GERD, left foot paresthesia, she was brought to the [facility] on 12/05[facility]2024 with a chief company of altered mental status, at this time, she was alert and fully oriented, with good social skills, but is a poor historian, the history is obtained from her son, chart review after I have intubated her. Our bilingual staff helped me In the morning on 12/05/2024, when her son came to her room checking her out, the patient was found to be nonresponsive to verbal stimuli, eyes were retirement open, mouth tightly closed, tensing whole-body. Her son called 911 and EMS came over in about 10 minutes, and found she was respiration, hypotension (SBP: 70) on her. According to ER documentation, she was still mentally altered in the ER. She was never had similar problem before, no history of seizure She reports having stroke in 2010, in that she had weakness all over body, and she was treated in a [facility]. But her son relates the patient was had left-sided weakness, she requested and her neighbor sent to her to a local hospital. The patient was said to have stroke. She denies taking aspirin or any blood thinner at home, but her ambulatory medication list includes clopidogrel. Her son relates the patient did not take blood thinner because of easy bruising Coincidentally after lumbar spine surgery in 2010, the patient was has constant numbness/and crawling feeling in the top and bottom of the right foot Urinalysis, 12/05/2024: WBC: One, urine leukocyte esterase: Negative CBC, 12/06/2024: Unremarkable BMP, 12/05/2024: Unremarkable Lactic acid, 12/05/2024: 3.5, 3.4 TBI/AST/ALT/AP, 12/05/2024: 0.7/223/72/119 TG/HDL/LDL/HDL, 12/06/2024: 120/157/91/54 Carotid Doppler, 12/05/2024: No significant plaque noted in either carotid artery. The velocity in the right ICA is mildly elevated though this is felt to be artifactual in nature - due to vessel tortuosity CT head, 12/05/2024: No acute intracranial process. Past Medical History Hypertension, GERD, neuropathy Past Surgical History Lumbar spine surgery Family History: Patient reports no known family medical history. Family History She is not aware of her family history Social History She was tobacco smoker, but no history of alcohol or recreational substance abuse Allergies: Coded Allergies: NO KNOWN ALLERGIES (Unverified , 12/05/24) Home Meds Reported Medications Losartan Potassium (Losartan Potassium) 50 Mg Tab, 1 TAB PO DAILY 12/06/24 Atorvastatin Calcium (ATORVASTATIN CALCIUM) 40 Mg Tab, 1 TAB PO DAILY 12/05/24 Clopidogrel Bisulfate (CLOPIDOGREL) 75 Mg Tab, 1 TAB PO DAILY 12/05/24 Current Medications Current Medications Medications (Trade) Dose Ordered Sig/Joe Route PRN Reason Start Time Stop Time Status Last Admin Acetaminophen (Tylenol Tablet Or Capsule) 500 mg Q6HP PRN PO MILD PAIN (1-3 PAIN SCALE) 12/05/24 22:15 12/06/24 04:04 Clopidogrel Bisulfate (Plavix) 75 mg DAILY PO 12/06/24 10:00 12/06/24 11:00 Losartan Potassium (Cozaar Tablet) 50 mg DAILY PO 12/06/24 10:00 12/06/24 11:01 Pantoprazole Sodium (Protonix) 40 mg DAILY IV 12/06/24 09:45 12/06/24 11:03 Enoxaparin Sodium (Lovenox) 40 mg DAILY SC 12/06/24 10:00 12/06/24 11:02 Hydralazine HCl (Apresoline Injection) 10 mg Q6HP PRN IV SBP>160 12/06/24 16:15 12/06/24 16:29 Review of Systems As above, the other systems are negative Vital Signs Vital Signs Date Time Temp Pulse Resp B/P (MAP) Pulse Ox O2 Delivery O2 Flow Rate FiO2 12/06/24 16:29 162/84 12/06/24 15:21 Room Air* 0 21 12/06/24 15:21 98.3 94 19 94 98.3 Physical Exam GENERAL EXAM: General: the patient is well developed and nourished. No acute distress. RESPIRATORY: Normal respiratory effort with symmetrical lung expansion. Lungs clear to auscultation. CARDIOVASCULAR: Regular rate and rhythm with no murmurs. S1, S2. ABDOMEN: Soft, nontender, normal bowel sound NEUROLOGICAL: MENTAL STATUS: Awake and alert. Oriented to person, place, time and general circumstances. Poor historian SPEECH, LANGUAGE, HIGHER CORTICAL FUNCTION: no aphasia or dysathria. CRANIAL NERVES: #2: Intact visual morin to confrontation. The optic discs were sharp. #3,4,6: Pupils are equal, round and reactive. EOMs full and conjugate. No nystagmus. #5: Facial sensation intact in all three divisions bilaterally. Mandibular strength intact. #7: Facial muscles symmetrical and strength intact. #8: Hearing grossly normal to voice. #9,10: Uvula and soft palate rise in the midline. Swallow and voice are normal. #11: Trapezius and sternomastoid strength intact bilaterally. #12: Tongue midline. No fasciculations or atrophy. SENSATION: Sensation to touch and pinprick is significant diminished in the left foot below the ankle MOTOR: Normal tone in the upper and lower extremity. Normal muscle bulk. No fasciculations. No abnormal movements or posturing. Muscle strength of the major groups in the upper extremities is 5/5. Muscle strength of the major groups in the lower extremities is 5/5. REFLEXES: Deep tendon reflexes normal and symmetrical. No pathological reflexes. CEREBELLAR/COORDINATION: Finger to nose is normal bilaterally. GAIT/STATION: deferred Labs/Diagnostic Data Labs Test 12/06/24 05:52 12/05/24 18:25 12/05/24 13:24 12/05/24 12:00 Range/Units White Blood Count 7.4 4.4-10.8 10^3/uL Red Blood Count 4.60 4.0-5.20 10^6/uL Hemoglobin 13.7 12.2-16.2 g/dL Hematocrit 40.8 36.0-46.0 % Mean Corpuscular Volume 88.5 80.0-100.0 fL Mean Corpuscular Hemoglobin 29.8 28.0-32.0 pg Mean Corpuscular Hemoglobin Concent 33.7 32.0-36.0 g/dL Red Cell Distribution Width 15.1 H 11.8-14.3 % Platelet Count 270 140-450 10^3/uL Mean Platelet Volume 8.1 6.9-10.8 fL Neutrophils (%) (Auto) 70.2 37.0-80.0 % Lymphocytes (%) (Auto) 22.9 10.0-50.0 % Monocytes (%) (Auto) 5.4 0.0-12.0 % Eosinophils (%) (Auto) 1.1 0.0-7.0 % Basophils (%) (Auto) 0.4 0.0-2.0 % Neutrophils # (Auto) 5.2 1.6-8.6 10 ^3/uL Lymphocytes # (Auto) 1.7 0.4-5.4 10 ^3/uL Monocytes # (Auto) 0.4 0-1.3 10 ^3/uL Eosinophils # (Auto) 0.1 0-0.8 10 ^3/uL Basophils # (Auto) 0 0-0.2 10 ^3/uL Nucleated Red Blood Cells 0.1 % Sodium Level 144 # 136-145 mmol/L Potassium Level 4.0 3.5-5.1 mmol/L Chloride Level 110 H 98-107 mmol/L Carbon Dioxide Level 21 20-31 mmol/L Anion Gap 13 5-15 Blood Urea Nitrogen 7 L 9-23 mg/dL Creatinine 0.65 0.550-1.02 mg/dL Glomerular Filtration Rate Calc 90 >90 mL/min BUN/Creatinine Ratio 10.8 10.0-20.0 Serum Glucose 110 H 74-106 mg/dL Calcium Level 8.9 8.7-10.4 mg/dL B-Type Natriuretic Peptide 105.93 0-100 pg/mL Triglycerides Level 120 < 150 mg/dL Cholesterol Level 157 < 200 mg/dL LDL Cholesterol 91 < 100 mg/dL HDL Cholesterol 54 40-59 mg/dL Vitamin D 25-Hydroxy 86.9 30.0-100 ng/mL Erythrocyte Sedimentation Rate 2 0-20 mm/hr C-Reactive Protein High Sensitivity 0.07 <1.0 mg/dL Lactic Acid Level 3.4 *H 0.4-2.0 mmol/L Urine Color Light-yellow Yellow Urine Clarity Clear Clear Urine pH 5.0 5.0-9.0 Urine Specific [place] 1.008 1.001-1.035 Urine Protein Negative Negative Urine Ketones Negative Negative Urine Blood Trace H Negative /uL Urine Nitrite Negative Negative Urine Bilirubin Negative Negative Urine Urobilinogen Normal Negative mg/dL Urine Leukocyte Esterase Negative Negative /uL Urine RBC 1 0 - 4 /hpf Urine Microscopic WBC < 1 0-5 /HPF Urine Squamous Epithelial Cells Few <5 /hpf Urine Bacteria Few H None Seen /hpf Urine Glucose Normal Normal mg/dL Test 12/05/24 11:20 Range/Units Total Bilirubin 0.7 0.2-1.0 mg/dL Aspartate Amino Transferase (AST) 223 H 13-40 U/L Alanine Aminotransferase (ALT) 72 H 7-40 U/L Alkaline Phosphatase 119 H 46-116 U/L Total Protein 6.7 5.7-8.2 g/dL Albumin 4.6 3.2-4.8 g/dL Microbiology Date/Time Source Procedure Growth Status 12/05/24 12:00 Urine - [place] Urine Culture - Preliminary Resulted 12/05/24 11:20 Blood Blood Culture - Preliminary NO GROWTH AFTER 24 HOURS OF INCUBATION. Resulted Assessment Altered mental status, etiology unclear ? Metabolic/toxic Encephalopathy ? Stroke ? Seizure Lactic acidosis Reports stroke, may not on secondary prevention secondary to easy bruising Left food sensory loss without weakness ? Radiculopathy Plan/Recommendation Monitoring Supportive treatment Telemetry UDS CK Lipitor profile EEG MR brain scan Echocardiogram Clopidogrel 75 mg daily for now DVT prophylaxis/Lovenox GI prophylax/Protonix Her son to bring medication bottles from home Cardiology evaluation Plan discussed with: Patient, Son, Other GUSTAVO ANDERSON MD Dec 06, 2024 21:36
[2024-12-06] MEDS ORDERED: LORazepam 2MG/ML-1ML VIAL IV PRN (22:30)
--- NOTE | 2024-12-06 22:47 | DVHEEG2 ---
Neurology EEG Procedural Note Procedural Note EXAM DATE: 12/06/2024 REFERRING DOCTOR: Nanci TECHNIQUE: Eighteen channels of EEG, 2 channels of EOG, and 1 channel of EKG were recorded using the International 10/20 system. CLINICAL DATA: The patient was referred for an EEG evaluation for the evidence of seizure disorder. MEDICATIONS: See the chart BACKGROUND ACTIVITY: While the patient was awake, the background activity consisted of well regulated 10 Hz rhythmic waveforms, symmetrically distributed over both posterior quadrants and was reactive to eye opening. ACTIVATION: Hyperventilation: Not done Photic Stimulation: Not done Sleep: Noticed IMPRESSION: This is a normal EEG. No focal, lateralized, or epileptiform features are noted. If clinically indicated to rule out a seizure disorder, recommend repeat EEG with sleep deprivation. The EKG channel showed a regular heart rate of 90/min[place] [address] GUSTAVO ANDERSON MD Dec 06, 2024 22:47
[2024-12-06 22:57] LABS: Triglycerides 86 mg/dL (< 150)
[2024-12-06 22:58] LABS: LDL Cholesterol 85 mg/dL (< 100)
[2024-12-06 22:59] LABS: Cholesterol 149 mg/dL (< 200); HDL Cholesterol 55 mg/dL (40-59)
[2024-12-07 08:00] VITALS: PULSE 74; PULSE 77; RESP 16; O2SAT 98
[2024-12-07 09:00] VITALS: BP 147/90; PULSE 86; RESP 16; TEMP 98.2; O2SAT 94
--- NOTE | 2024-12-07 12:14 | DVHPN2 ---
Progress Note - Dictate Date Seen: Dec 07, 2024 Medical Necessity Reason Pt with a Central, PICC or Fol: No vital signs Vital Sign Date Time Temp Pulse Resp B/P (MAP) Pulse Ox O2 Delivery O2 Flow Rate FiO2 12/07/24 09:50 142/76 12/07/24 09:00 98.2 86 16 94 98.2 12/07/24 08:00 Room Air* 0 21 Total Intake and Output 12/06/24 12/06/24 12/07/24 15:00 23:00 07:00 Intake Total 525 ml 240 ml 640 ml Balance 525 ml 240 ml 640 ml medications Current Medications Medications Dose Ordered Sig/Joe Route Start Time Stop Time Status Last Admin Dose Admin Nitroglycerin 0.4 mg Q5MINP PRN SL 12/05/24 17:15 Morphine Sulfate 2 mg Q30M PRN IV 12/05/24 17:15 Sodium Chloride 1,000 ml @ 75 mls/hr [id number] IV 12/05/24 17:15 12/07/24 09:23 75 MLS/HR Acetaminophen 500 mg Q6HP PRN PO 12/05/24 22:15 12/06/24 22:02 500 MG Clopidogrel Bisulfate 75 mg DAILY PO 12/06/24 10:00 12/07/24 09:50 75 MG Losartan Potassium 50 mg DAILY PO 12/06/24 10:00 12/07/24 09:50 50 MG Pantoprazole Sodium 40 mg DAILY IV 12/06/24 09:45 12/07/24 09:49 40 MG Enoxaparin Sodium 40 mg DAILY SC 12/06/24 10:00 12/07/24 09:49 40 MG Hydralazine HCl 10 mg Q6HP PRN IV 12/06/24 16:15 12/06/24 16:29 10 MG Lorazepam 1 mg ONCE PRN IV 12/06/24 22:30 laboratory and microbiology Laboratory Tests 12/06/24 05:52 Test 12/06/24 05:52 Range/Units Serum Glucose 110 H 74-106 mg/dL Assessment/Plan Patient is a 79-year-old female who presented to the hospital secondary to altered mental status. As per EMS, the patient's blood pressure was 70s at home. She did get some fluids and felt better later on. Patient denies any chest pains. Patient denies palpitation. Cardiology is involved for cardiac aspects of care. Patient denies previous cardiac evaluation and management. Patient denies history of drug abuse/alcohol abuse. It seems that the patient did receive some stressful news prior to the problem. She is Yi speaking and information was obtained by using an supervisor nutritional yeast and talking to the patient's son at the bedside. Not in acute distress. Sitting in bed and eating dinner at the time of evaluation. Not using accessory muscles of breathing. Mucosa is pink and wet. No carotid bruit. No goiter. Lungs are clear to auscultation. Cardiac: Regular, no thrill/gallop. Abdomen is soft. Bowel sounds is positive. There is no gross mass/hepatomegaly. There is no peripheral edema. Past medical history includes hypertension, hyperlipidemia, neuropathy, left foot paresthesia, old CVA, GERD and previous history of cholecystectomy. She has had back surgery few years back. He has no report of drug abuse/smoking/alcohol abuse. There is no relevant family history. (Not on antiplatelets secondary to easy bruising) Creatinine: 0.74 - 0.65 Potassium: 3.6 - 4.0 AST/ALT: 223/72 Lactic acid: 3.5 - 3.4 BNP: 105.93 CK: 51 Chest x-ray revealed: No acute cardiopulmonary disease. CT of the head revealed: IMPRESSION: 1. No acute intracranial process. Carotid Doppler reported: IMPRESSION: No significant plaque noted in either carotid artery. The velocity in the right ICA is mildly elevated though this is felt to be artifactual in nature - due to vessel tortuosity. Abdomen/pelvis CT scan reported: IMPRESSION: 1. Severe enlargement of the uterus which is of mixed attenuation. Pelvic ultrasound recommended to exclude tumor. 2. Appendix not visualized 3. No obstructive uropathy 4. No aortic aneurysm Abdominal ultrasound revealed: Liver and Biliary System: Homogeneous echotexture, normal size measuring 10.75 cm. No focal hepatic observations. No intrahepatic bile duct dilatation. The common duct measures 0.3 cm at the leobardo hepatis. Prior cholecystectomy. Pancreas: Visualized portions are unremarkable. Kidneys: The right kidney is 8.9 cm . No hydronephrosis, increased echogenicity, shadowing stone, or focal lesion. IMPRESSION: 1. No acute abnormality 2. Prior cholecystectomy. EKG revealed sinus rhythm with no specific ST-T changes Telemetry reveals sinus rhythm and occasions of sinus tachycardia Echocardiogram revealed: Left ventricle: Left ventricle was normal size with normal systolic function. LVEF was around 55%. There was no gross wall motion abnormality. Right ventricle: Right ventricle is normal size with normal systolic function. Both atria were normal size. Aortic valve was trileaflet. There was no aortic insufficiency/stenosis. There was no mitral/tricuspid regurgitation. Pulmonary valve was not well visualized. As there was no good tricuspid regurgitation jet, right ventricular systolic pressure could not be estimated. There was no pericardial effusion. IVC was normal size with normal respiratory variation. Patient is a 79-year-old female who presented to the hospital with altered mental status which slowly improved. Presentation is in favor of some type of encephalopathy (most likely metabolic). Cardiogenic syncope and presentation is less likely. Neurology on board. Altered mental status Encephalopathy, metabolic/toxic/septic? Hypotension UTI? Hyperlipidemia Neuropathy GERD Hypertension Uterus enlargement Cardiac suggestion for management: Manage on telemetry Follow-up electrolytes and kidney function tests and correct abnormalities Add Amlodipine for better control of hypertension Consider GI evaluation for abnormal LFT Consider flow floor attendant evaluation/abdominal sono for uterus enlargement Neurology follow up Further evaluation and management depends on the above and clinical course A total of 55 minutes was spent reviewing the patient record, examining the patient, making a diagnostic and therapeutic plan, discussing this plan with medical personnel, following up on diagnostic studies and following the patient for clinical stability excluding any and all procedures. At least 50% of this time was spent in direct, [id number] contact. Thank you for allowing me to participate in this patient's care. Further recommendations will depend on patient's clinical course. Please do not hesitate to contact me if you have any questions or concerns. This medical document was created using electronic medical record system with [employer] dictation system. Although this document has been carefully reviewed, there may still be some phonetic and typographical errors. These areas are purely typographical due to the imperfection of the software programs, and do not reflect any compromise in the patient's medical care. Plan discussed with: Patient, Other (nurse) MARTITA SYKES MD Dec 07, 2024 12:14
[2024-12-07 13:00] VITALS: BP 166/79; PULSE 87; RESP 22; TEMP 98.1; O2SAT 95
[2024-12-07] MEDS ORDERED: hydrALAZINE HCL 20 MG/ML VL IV PRN (13:00)
--- NOTE | 2024-12-07 13:13 | DVH ---
PROCEDURE: MRI BRAIN HEAD WO CONTRAST INDICATION: CVA EXAM DATE: 12/07/2024 12:38 PM COMPARISON: None TECHNIQUE: MRI of the brain without intravenous contrast. FINDINGS: Diffusion weighted images of the brain demonstrate no evidence of acute infarction. There is no evidence of acute intracranial hemorrhage, extra-axial collection, mass effect, midline s hift, herniation or hydrocephalus. The ventricles, sulci and cisterns appear age appropriate. The signal intensities of the brain parenchyma are within normal limits. There are no signal abnormalities on the susceptibility weighted sequences. The major vascular flow voids are present. Moderate chronic right maxillary sinusitis consistent with prior CT study. Mild small vessel schema changes deep white matter both cerebral hemispheres. Upper cervical cord is intact. IMPRESSION: 1. No evidence of acute infarction, intracranial hemorrhage, mass effect or hydrocephalus. 2. Chronic right maxillary sinusitis.
[2024-12-07] MEDS ORDERED: OMEP20TA PO (14:24)
[2024-12-07] MEDS: amLODIPine BESYLATE 5 MG TAB PO ONE (14:30)
--- NOTE | 2024-12-07 14:56 | DVHPN2 ---
Eyes: No Pain, No Vision change, No Conjunctivae inflammation, No Eyelid inflammation, No Other, No Redness ENT: No Ear pain, No Ear discharge, No Nose pain, No Nose discharge, No Nose congestion, No Mouth pain, No Mouth swelling, No Throat pain, No Throat swelling, No Other Cardiovascular: No Chest Pain, No Palpitations, No Orthopnea, No Paroxysmal Noc. Dyspnea, No Edema, No Lt Headedness, No Other Respiratory: No Cough, No Dry, No Shortness of breath, No SOB with excertion, No Wheezing, No Hemoptysis, No Pleuritic Pain, No Sputum, No Other Gastrointestinal: No Nausea, No Vomiting, No Abdominal Pain, No Diarrhea, No Constipation, No Melena, No Hematochezia, No Other Genitourinary: No Dysuria, No Frequency, No Incontinence, No Hematuria, No Retention, No Other Musculoskeletal: No other, No neck pain, No shoulder pain, No arm pain, No back pain, No hand pain, No leg pain, No foot pain Skin: No Rash, No Lesions, No Jaundice, No Bruising, No Other Objective Vitals Vital Signs Date Time Temp Pulse Resp B/P (MAP) Pulse Ox O2 Delivery O2 Flow Rate FiO2 12/07/24 14:30 148/74 12/07/24 09:00 98.2 86 16 94 98.2 12/07/24 08:00 Room Air* 0 21 Intake/Output Intake and Output 12/07/24 07:00 Intake Total 1405 ml Balance 1405 ml Intake Oral 880 ml IV Total 525 ml # Voids 6 Medications Current Medications Medications Dose Ordered Sig/Joe Route Start Time Stop Time Status Last Admin Dose Admin Nitroglycerin 0.4 mg Q5MINP PRN SL 12/05/24 17:15 Morphine Sulfate 2 mg Q30M PRN IV 12/05/24 17:15 Sodium Chloride 1,000 ml @ 75 mls/hr [id number] IV 12/05/24 17:15 12/07/24 09:23 75 MLS/HR Acetaminophen 500 mg Q6HP PRN PO 12/05/24 22:15 12/06/24 22:02 500 MG Clopidogrel Bisulfate 75 mg DAILY PO 12/06/24 10:00 12/07/24 09:50 75 MG Losartan Potassium 50 mg DAILY PO 12/06/24 10:00 12/07/24 09:50 50 MG Pantoprazole Sodium 40 mg DAILY IV 12/06/24 09:45 12/07/24 09:49 40 MG Enoxaparin Sodium 40 mg DAILY SC 12/06/24 10:00 12/07/24 09:49 40 MG Lorazepam 1 mg ONCE PRN IV 12/06/24 22:30 Hydralazine HCl 10 mg Q8HP PRN IV 12/07/24 13:00 Amlodipine Besylate 5 mg DAILY PO 12/08/24 10:00 Laboratory Results Laboratory Tests 12/06/24 05:52 Lipid panel Test 12/06/24 22:33 Cholesterol Level 149 mg/dL (< 200) HDL Cholesterol 55 mg/dL (40-59) Triglycerides Level 86 mg/dL (< 150) Urinalysis Test 12/05/24 12:00 Urine Color Light-yellow (Yellow) Urine Clarity Clear (Clear) Urine pH 5.0 (5.0-9.0) Urine Specific [place] 1.008 (1.001-1.035) Urine Protein Negative (Negative) Urine Ketones Negative (Negative) Urine Blood Trace /uL (Negative) H Urine Nitrite Negative (Negative) Urine Bilirubin Negative (Negative) Urine Urobilinogen Normal mg/dL (Negative) Urine Leukocyte Esterase Negative /uL (Negative) Urine RBC 1 /hpf (0 - 4) Urine Microscopic WBC < 1 /HPF (0-5) Urine Squamous Epithelial Cells Few /hpf (<5) Urine Bacteria Few /hpf (None Seen) H Urine Glucose Normal mg/dL (Normal) Microbiology Microbiology Date/Time Source Procedure Growth Status 12/05/24 12:00 Urine - [place] Urine Culture - Preliminary Resulted 12/05/24 11:20 Blood Blood Culture - Preliminary NO GROWTH AFTER 48 HOURS OF INCUBATION. Resulted Assessment/Plan My Orders Orders - SRINI GARCIA MD Procedure Category Date Status Time Hydralazine Injection PHA 12/07/24 In Process (Apresoline Inject 13:00 SRINI GARCIA MD Dec 07, 2024 14:56
--- NOTE | 2024-12-07 15:56 | DVHPN2 ---
Progress Note - Dictate Medical Necessity Reason Pt with a Central, PICC or Fol: No vital signs Vital Sign Date Time Temp Pulse Resp B/P (MAP) Pulse Ox O2 Delivery O2 Flow Rate FiO2 12/07/24 14:30 148/74 12/07/24 13:00 98.1 87 22 95 98.1 12/07/24 08:00 Room Air* 0 21 Total Intake and Output 12/06/24 12/06/24 12/07/24 14:59 22:59 06:59 Intake Total 600 ml 240 ml 640 ml Balance 600 ml 240 ml 640 ml medications Current Medications Medications Dose Ordered Sig/Joe Route Start Time Stop Time Status Last Admin Dose Admin Nitroglycerin 0.4 mg Q5MINP PRN SL 12/05/24 17:15 Morphine Sulfate 2 mg Q30M PRN IV 12/05/24 17:15 Sodium Chloride 1,000 ml @ 75 mls/hr [id number] IV 12/05/24 17:15 12/07/24 09:23 75 MLS/HR Acetaminophen 500 mg Q6HP PRN PO 12/05/24 22:15 12/06/24 22:02 500 MG Clopidogrel Bisulfate 75 mg DAILY PO 12/06/24 10:00 12/07/24 09:50 75 MG Losartan Potassium 50 mg DAILY PO 12/06/24 10:00 12/07/24 09:50 50 MG Pantoprazole Sodium 40 mg DAILY IV 12/06/24 09:45 12/07/24 09:49 40 MG Enoxaparin Sodium 40 mg DAILY SC 12/06/24 10:00 12/07/24 09:49 40 MG Lorazepam 1 mg ONCE PRN IV 12/06/24 22:30 Hydralazine HCl 10 mg Q8HP PRN IV 12/07/24 13:00 Amlodipine Besylate 5 mg DAILY PO 12/08/24 10:00 laboratory and microbiology Laboratory Tests 12/06/24 05:52 Test 12/06/24 05:52 Range/Units Serum Glucose 110 H 74-106 mg/dL Assessment/Plan Subjective Patient is awake and alert. Objective Patient's mentation has improved. Patient is Chinese-speaking. Patient was admitted for syncopal episode. Patient has elevated liver enzymes and lactic acidosis. Plan Obtain CT imaging of abdomen and pelvis. Monitor daily labs. Cardiology consult. DC planning in 1 to 2 days. SHAINA COLEMAN NP Dec 07, 2024 15:56
--- NOTE | 2024-12-07 16:16 | DVHDS2 ---
Discharge Summary Date of Admission Dec 05, 2024 at 17:14 Date of Discharge: Dec 07, 2024 Labs/Diagnostic Data: Laboratory Results Test 12/06/24 22:33 12/06/24 05:52 12/05/24 18:25 12/05/24 13:24 Creatine Kinase 51 U/L (34-145) Triglycerides Level 86 mg/dL (< 150) Cholesterol Level 149 mg/dL (< 200) LDL Cholesterol 85 mg/dL (< 100) HDL Cholesterol 55 mg/dL (40-59) White Blood Count 7.4 10^3/uL (4.4-10.8) Red Blood Count 4.60 10^6/uL (4.0-5.20) Hemoglobin 13.7 g/dL (12.2-16.2) Hematocrit 40.8 % (36.0-46.0) Mean Corpuscular Volume 88.5 fL (80.0-100.0) Mean Corpuscular Hemoglobin 29.8 pg (28.0-32.0) Mean Corpuscular Hemoglobin Concent 33.7 g/dL (32.0-36.0) Red Cell Distribution Width 15.1 % (11.8-14.3) Platelet Count 270 10^3/uL (140-450) Mean Platelet Volume 8.1 fL (6.9-10.8) Neutrophils (%) (Auto) 70.2 % (37.0-80.0) Lymphocytes (%) (Auto) 22.9 % (10.0-50.0) Monocytes (%) (Auto) 5.4 % (0.0-12.0) Eosinophils (%) (Auto) 1.1 % (0.0-7.0) Basophils (%) (Auto) 0.4 % (0.0-2.0) Neutrophils # (Auto) 5.2 10 ^3/uL (1.6-8.6) Lymphocytes # (Auto) 1.7 10 ^3/uL (0.4-5.4) Monocytes # (Auto) 0.4 10 ^3/uL (0-1.3) Eosinophils # (Auto) 0.1 10 ^3/uL (0-0.8) Basophils # (Auto) 0 10 ^3/uL (0-0.2) Nucleated Red Blood Cells 0.1 % Sodium Level 144 mmol/L (136-145) Potassium Level 4.0 mmol/L (3.5-5.1) Chloride Level 110 mmol/L (98-107) Carbon Dioxide Level 21 mmol/L (20-31) Anion Gap 13 (5-15) Blood Urea Nitrogen 7 mg/dL (9-23) Creatinine 0.65 mg/dL (0.550-1.02) Glomerular Filtration Rate Calc 90 mL/min (>90) BUN/Creatinine Ratio 10.8 (10.0-20.0) Serum Glucose 110 mg/dL (74-106) Calcium Level 8.9 mg/dL (8.7-10.4) B-Type Natriuretic Peptide 105.93 pg/mL (0-100) Vitamin D 25-Hydroxy 86.9 ng/mL (30.0-100) Erythrocyte Sedimentation Rate 2 mm/hr (0-20) C-Reactive Protein High Sensitivity 0.07 mg/dL (<1.0) Lactic Acid Level 3.4 mmol/L (0.4-2.0) Test 12/05/24 12:00 12/05/24 11:20 Urine Color Light-yellow (Yellow) Urine Clarity Clear (Clear) Urine pH 5.0 (5.0-9.0) Urine Specific [place] 1.008 (1.001-1.035) Urine Protein Negative (Negative) Urine Ketones Negative (Negative) Urine Blood Trace /uL (Negative) Urine Nitrite Negative (Negative) Urine Bilirubin Negative (Negative) Urine Urobilinogen Normal mg/dL (Negative) Urine Leukocyte Esterase Negative /uL (Negative) Urine RBC 1 /hpf (0 - 4) Urine Microscopic WBC < 1 /HPF (0-5) Urine Squamous Epithelial Cells Few /hpf (<5) Urine Bacteria Few /hpf (None Seen) Urine Glucose Normal mg/dL (Normal) Total Bilirubin 0.7 mg/dL (0.2-1.0) Aspartate Amino Transferase (AST) 223 U/L (13-40) Alanine Aminotransferase (ALT) 72 U/L (7-40) Alkaline Phosphatase 119 U/L (46-116) Total Protein 6.7 g/dL (5.7-8.2) Albumin 4.6 g/dL (3.2-4.8) Other Laboratory Tests 12/06/24 05:52 Brief Hx & Hospital Course: 79-year-old female with a history of hypertension, dyslipidemia, GERD, and neuropathy found to be nonresponsive at home. Patient was last seen yesterday evening watching TV, and when she was checked this morning she was somewhat nonresponsive. At the time of assessment, the patient was alert and oriented, but was reported by the primary nurse in the emergency room that she did have a period of becoming nonresponsive. At this time all vital signs are stable, with home medications reviewed. The patient was admitted on December 05, 2024, for a possible syncopal episode. The patient's blood pressure was apparently in the 70s, according to the patient's grandson, who found her "knocked out" in her bed. The patient was evaluated by neurology as well as cardiology. The patient also had some lactic acidosis. A urinalysis showed few bacteria. The patient was afebrile, and no leukocytosis was noted. Sepsis was ruled out. MRI was negative for CVA. CT of the abdomen did show a severely enlarged uterus. Upon discussion with the patient's grandson, they stated the patient has large fibroids and is pending an outpatient biopsy by [employer] [facility] [employer]. Blood pressure has actually been elevated into the 150s. The patient was seen by cardiology, and blood pressure medications were adjusted. The patient was seen by neurology, and EEG was negative for seizure activity. The patient is requesting to discharge home. Since no infectious process was found, and seizure and stroke were ruled out, the patient will be discharged home to the care of her grandson. She will follow up with her PCP in one week. The patient received proper medical treatment and medications. Vital signs, Imaging and Laboratory Work was monitored. All consults recommendations were followed as provided. There were no complaints or new complaints upon discharge, all questions and concerns were answered. Patient was advised to return to the ER or call 911 if any headaches, dizziness, shortness of breath, chest pain, bleeding, fevers, or worsening of medical condition. Patient/Family was counseled about treatment plan, medications, possible side effects, patientverbalized understanding. All questions were answered to the best of my ability. The patient symptoms improved and they are okay to be DC. Condition at Discharge: Good Final Diagnosis/Problems List Syncope- non cardiac EEG normal- no seizure MRI neg- no cva UA-clean, only few bacteria and UC neg No sepsis Enlarged uterus- known, pt is waiting for outpt bx Discharge Disposition: Home Discharge Instruct/Medications Diet: Cardiac 2g Na,low cholest Activity: No Restrictions, As Tolerated Discharge Statement: "Patient was advised to return to the ER or call 911 if any headaches, dizziness, shortness of breath, chest pain, abdominal pain, bleeding, fevers, or worsening of medical condition. Patient was counseled about treatment plan, medications, possible side effects, patientverbalized understanding. All questions were answered to the best of my ability. This discharge took greater then 30 minutes in planning, reviewing documentation, counseling the patient, and discussing with other team members." ASSESSMENT ASSESSMENT Assessment Syncope- non cardiac EEG normal- no seizure MRI neg- no cva UA-clean, only few bacteria and UC neg No sepsis Enlarged uterus- known, pt is waiting for outpt bx SHAINA COLEMAN NP Dec 07, 2024 16:16
[2024-12-07 17:00] VITALS: BP 155/69; PULSE 87; RESP 19; TEMP 98.4; O2SAT 94
[2024-12-07 17:10] VITALS: BP 142/68; PULSE 70; RESP 18; TEMP 98.2; O2SAT 94
[2024-12-08] MEDS ORDERED: amLODIPine BESYLATE 5 MG TAB PO SCH (10:00)
== END 2024-12-07 18:50 | disposition home or self-care (01) | DRG 314 ==
LOC: ER 10:31 → EDBD 10:31 → TELE 17:14 → TELE-CENTR 12-06 14:49
PROVIDERS: ADMIT Nurse Practitioner Acute Care; ATTEND Nurse Practitioner Acute Care
DX: I95.9 Hypotension, unspecified (principal); G93.41 Metabolic encephalopathy; E87.20 Acidosis, unspecified; R56.9 Unspecified convulsions; E78.5 Hyperlipidemia, unspecified; K21.9 Gastro-esophageal reflux disease without esophagitis; G62.9 Polyneuropathy, unspecified; F17.200 Nicotine dependence, unspecified, uncomplicated; N85.2 Hypertrophy of uterus; I10 Essential (primary) hypertension; Z79.02 Long term (current) use of antithrombotics/antiplatelets; Z86.73 Personal history of transient ischemic attack (TIA), and cerebral infarction without residual deficits; Z90.49 Acquired absence of other specified parts of digestive tract; Z79.899 Other long term (current) drug therapy; F43.9 Reaction to severe stress, unspecified
CPT/HCPCS: 36415; 70450; 70551; 71045; 74177; 76705; 80048; 80053; 80061; 81001; 82306; 82550; 83605; 83880; 85025; 85652; 86141; 87040; 87086; 93005; 93017; 93306; 93886; 95819; 96365; 99291; G0378; J2470